=== PATIENT | male | born 2000 | race Hispanic/Latino ===

== ENCOUNTER 2020-08-19 16:03 | Emergency (ER) | payer MEDICAID ==
[2020-08-19] MEDS ORDERED: IBUPROFEN 600 MG TABLET ONE (16:18)
== END 2020-08-19 17:12 | disposition home or self-care (01) ==
LOC: EDH 16:03
DX: S93.401A Sprain of unspecified ligament of right ankle, initial encounter (principal); Y93.61 Activity, american tackle football; Y93.89 Activity, other specified; Y92.89 Other specified places as the place of occurrence of the external cause; Y99.8 Other external cause status
CPT/HCPCS: 73610

== ENCOUNTER 2023-03-17 00:10 | Emergency (ER) | payer MEDICAID, OTHER ==
[~2023-03-17] VITALS: Ht 180.3 cm; Wt 73.5 kg
[2023-03-17 00:12] VITALS: BP 131/64; PULSE 56; RESP 20; O2SAT 100
[2023-03-17] MEDS ORDERED: LIDOCAINE HCL-MPF 2% 5ML VIAL ONE (00:35)
== END 2023-03-17 01:13 | disposition home or self-care (01) ==
LOC: EDH 00:10
DX: T16.2XXA Foreign body in left ear, initial encounter (principal); W44.8XXA Other foreign body entering into or through a natural orifice, initial encounter; Y93.89 Activity, other specified; Y92.89 Other specified places as the place of occurrence of the external cause; Y99.8 Other external cause status
CPT/HCPCS: 99285; 10120; J3490